=== PATIENT | male | born 1965 | race Two or more races ===

== ENCOUNTER 2019-04-29 07:18 | Day surgery (SDC) | payer OTHER ==
[2019-04-29] VITALS (11 sets, daily range): BP systolic 101–135; BP diastolic 63–87
[~2019-04-29] VITALS: Ht 167.6 cm; Wt 67.1 kg
[~2019-04-29 07:18] MED LIST: NKM
--- NOTE | 2019-04-29 08:48 | Pre-Procedure Note/Attestation ---
Pre-Procedure Note/Attestation Complete Prior to Procedure Planned Procedure: not applicable Procedure Narrative: Procedure for Prolapse and Hemorrhoids (PPH) Indications for Procedure Pre-Operative Diagnosis: Hemorrhoids Attestation I attest that I discussed the nature of the procedure; its benefits; risks and complications; and alternatives (and the risks and benefits of such alternatives ), prior to the procedure, with the patient (or the patient's legal physician representative). I attest that, if there was a reasonable possibility of needing a blood transfusion, the patient (or the patient's legal physician representative) was given the [facility] standardized written summary, pursuant to the Elpidio Darcy Blood Safety Act ([place] Health and Safety Code # 1645, as amended). I attest that I re-evaluated the patient just prior to the surgery and that there has been no change in the patient's H&P, except as documented below: Sabina Carlson MD Apr 29, 2019 08:48
[2019-04-29] MEDS ORDERED: Ropivacaine 5mg/ml Vial 30ml INJ ONE (08:55)
[2019-04-29] MEDS ORDERED: EPINEPHrine 1mg/1ml Amp ONE (08:55)
[2019-04-29] MEDS ORDERED: cefOXitin 2gm Inj ONE (08:55)
[2019-04-29] MEDS ORDERED: Dexamethasone 4mg/ml vial ONE (08:55)
[2019-04-29] MEDS ORDERED: Lidocaine 1% Plain 30 ml INJ ONE (08:56)
[2019-04-29] MEDS ORDERED: Sodium Chloride 10ml vial INJ ONE (08:57)
[2019-04-29] MEDS ORDERED: Alfentanil 2ml Inj ONE (08:57)
[2019-04-29] MEDS ORDERED: LR 1000ml 1,000 ML IVLG SCH (08:58)
[2019-04-29] MEDS ORDERED: fentaNYL 100 mcg/2 mL IV PRN (09:00)
[2019-04-29] MEDS ORDERED: oxyCODONE HCL/Acetaminophen 5/325mg ORAL PRN (09:00)
[2019-04-29] MEDS ORDERED: Midazolam 2mg/2ml Inj IVP PRN (09:00)
[2019-04-29] MEDS ORDERED: LR 1000ml ONE (09:00)
[2019-04-29] MEDS ORDERED: HYDROcodone/Acetamin 7.5/325 tab ORAL PRN (09:00)
[2019-04-29] MEDS ORDERED: Propofol 200mg/20ml IV ONE (09:00)
[2019-04-29] MEDS ORDERED: DiphenhydrAMINE 50mg/ml Inj IVP PRN (09:00)
[2019-04-29] MEDS ORDERED: HYDROcodone/Acetamin 5/325 tab ORAL PRN (09:00)
[2019-04-29] MEDS ORDERED: Meperidine 50mg/ml Inj(FOR RIGORS ONLY) IVP PRN (09:00)
[2019-04-29] MEDS ORDERED: Acetic Acid 3% Solution 15ml TOPIC SCH (09:00)
[2019-04-29] MEDS ORDERED: Metoclopramide 10mg/2ml Inj IVP PRN (09:00)
[2019-04-29] MEDS ORDERED: Labetalol 5mg/ml 20ml vial IV PRN (09:00)
[2019-04-29] MEDS ORDERED: NS Irrig 1000ml ONE (09:00)
[2019-04-29] MEDS ORDERED: Sterile Water Irrig 1000ml IRRIG ONE (09:00)
[2019-04-29] MEDS ORDERED: Ketorolac 30mg Inj IV PRN ×2 (09:00)
[2019-04-29] MEDS ORDERED: Hydromorphone 0.5mg/0.5ml inj IVP PRN (09:00)
[2019-04-29] MEDS ORDERED: Atropine Sulfate 0.4mg/ml inj IVP PRN (09:00)
[2019-04-29] MEDS ORDERED: Acetaminophen (Non formulary) 100 ML IV ONE (09:00)
[2019-04-29] MEDS ORDERED: LORazepam Inj 2mg/ml 1ml IV PRN (09:00)
[2019-04-29] MEDS ORDERED: Lidocaine 1% MPF 10mg/ml 5ml ONE (09:06)
--- NOTE | 2019-04-29 09:08 | Anethesia Preoperative Eval ---
Anesthesia Pre-op PMH/ROS General Date of Evaluation: Apr 29, 2019 Time of Evaluation: 09:06 Anesthesiologist: Vito ASA Score: ASA 2 Mallampati Score Class I : Soft palate, uvula, fauces, pillars visible Class II: Soft palate, uvula, fauces visible Class III: Soft palate, base of uvula visible Class IV: Only hard plate visible Mallampati Classification: Class I Surgeon: Robyn Diagnosis: Hemorrhoids Surgical Procedure: Hemorroidectomy Anesthesia History: none Family History: no anesthesia problems Allergies: Coded Allergies: No Known Allergies (Unverified , 04/29/19) Medications: see eMAR Patient NPO?: Yes Past Medical History Gastrointestinal/Genitourinary: Reports: GERD PSxH Narrative: Appendectomy Anesthesia Pre-op Phys. Exam Physician Exam Last Vital Signs Date Time Temp Pulse Resp B/P (MAP) Pulse Ox O2 Delivery O2 Flow Rate FiO2 04/29/19 07:48 Room Air 04/29/19 07:47 97.0 58 18 127/78 98 Constitutional: NAD Neurologic: CN 2-12 intact Cardiovascular: RRR Respiratory: CTA Gastrointestinal: S/NT/ND Airway Exam Mallampati Score: Class I MO: full ROM: full Teeth: intact Anesthesia Pre-op A/P Risk Assessment & Plan Assessment: ASA 2 Plan: GA, SED Status Change Before Surgery: No Pre-Antibiotics Drug: Cefoxitan 1 Gram IV Given Within 1 Hr of Incision: Yes Time Given: 09:12 Akhil Padron MD Apr 29, 2019 09:07
--- NOTE | 2019-04-29 09:34 | Immediate Post-Op Evaluation ---
Immediate Post-Op Evalulation Immediate Post-Op Evalulation Procedure: Hemorroidectomy Date of Evaluation: Apr 29, 2019 Time of Evaluation: 10:17 IV Fluids: 300 LR Blood Products: 0 Estimated Blood Loss: 30 Urinary Output: 0 Blood Pressure Systolic: 129 Blood Pressure Diastolic: 84 Pulse Rate: 84 Respiratory Rate: 16 O2 Sat by Pulse Oximetry: 99 Temperature (Fahrenheit): 97.6 Pain Score (1-10): 1 Nausea: No Vomiting: No Complications 0 Patient Status: awake, reacts, patent, none Hydration Status: adequate Dru Gram Cefoxitan IV Given Within 1 Hr of Incision: Yes Time Given: 09:12 Akhil Padron MD Apr 29, 2019 09:34
--- NOTE | 2019-04-29 09:35 | 48 Hour Post Anesthesia Eval ---
Post Anesthesia Evaluation Procedure: Hemorroidectomy Date of Evaluation: Apr 29, 2019 Time of Evaluation: 12:23 Blood Pressure Systolic: 127 0: 81 Pulse Rate: 78 Respiratory Rate: 18 Temperature (Fahrenheit): 97.8 O2 Sat by Pulse Oximetry: 100 Airway: patent Nausea: No Vomiting: No Pain Intensity: 1 Hydration Status: adequate Cardiopulmonary Status: Stable Mental Status/LOC: patient returned to baseline Follow-up Care/Observations: 0 Post-Anesthesia Complications: 0 Follow-up care needed: ready to discharge Akhil Padron MD Apr 29, 2019 09:35
[2019-04-29] MEDS ORDERED: Flumazenil 0.1mg/ml 5ml Inj IV ONE (09:44)
--- NOTE | 2019-04-29 10:02 | Brief Operative Note ---
Immediate Post Operative Note Operative Note Chief Complaint: Bleeding hemorrhoids Pre-op Diagnosis: Hemorrhoids Procedure: Procedure for Prolapse and Hemorrhoids (PPH) Post-op Diagnosis: same Post-op Diagnosis: same as pre-op Findings: consistent w/pre-op dx studies Surgeon: Sabina Carlson MD Anesthesiologist: Akhil Padron MD Anesthesia: general, moderate sedation Specimen: yes Complications: none Condition: stable Fluids: see anesthesia record Estimated Blood Loss: minimal Drains: none Implant(s) used?: No Sabina Carlson MD Apr 29, 2019 10:02
--- NOTE | 2019-04-29 17:15 | Operative Note - Dictated ---
DATE OF OPERATION: 04/29/2019 PREOPERATIVE DIAGNOSIS: Bleeding large internal hemorrhoids. POSTOPERATIVE DIAGNOSIS: Bleeding large internal hemorrhoids. PROCEDURE: Procedure for prolapse and hemorrhoids (PPH). SURGEON: Sabina Carlson M.D. ANESTHESIOLOGIST: Akhil Padron M.D. ANESTHESIA: Propofol sedation with local anesthetic. INDICATION FOR PROCEDURE: The patient is a 53-year-old male who was sent to my office by his physician, Dr. Sourav Baxter, for colorectal surgical evaluation of large bleeding internal hemorrhoids. The patient was found on physical exam to have prolapsing internal hemorrhoids, which were friable and oozing. In light of the patient's continued bleeding, it was determined at this time to proceed with hemorrhoidectomy. DESCRIPTION OF PROCEDURE: Upon consent of the patient, the patient was brought to the operating room and placed in the prone ankur-knife position on the operating table. Once adequate sedation was started with propofol drip, the patient's buttocks were prepped and draped in usual standard surgical fashion. A 40 mL of 0.5% ropivacaine with epinephrine mixed with 8 mg of dexamethasone was used as a perianal and pudendal block. A Hill-Pagan retractor was placed into the anal canal. There were noted to be large prolapsing circumferential internal hemorrhoid. The dilator Covidien PPH stapler was inserted and removed. The dilator with a clear obturator was then inserted and held firmly to the buttocks and placed. The dilator was removed and the pursestring anoscope was inserted and a pressure was created approximately 1 cm proximal to the dentate line using a 2-0 Monocryl suture. Upon completion of the pursestring, the anoscope was removed and the pursestring was tied around the anvil of the 33 mm Covidien PPH stapler. The stapler was closed and the perianal skin was checked to make sure there is no involvement of the perianal skin. The stapler was then fired, opened, and withdrawn, there was noted to be a complete hemorrhoidal donut. This was passed off the field as specimen. The anoscope was reinserted and any bleeding points along the staple line were electrofulgurated with the Bovie electrocautery. The anal canal was then irrigated and hemostasis confirmed. Ice pack was used for postoperative swelling. Sponge, needle, instrument, counts were correct at the end of the case. The patient was awakened from anesthesia and brought to postanesthesia recovery in stable condition. ESTIMATED BLOOD LOSS: Less than 5 mL. DRAINS: None. SPECIMEN: Hemorrhoidal donut. COMPLICATIONS: None. Sabina Carlson M.D. DR: ISIDRO JOB#: [id number] CC: Enrique Forman M.D.
== END 2019-04-29 12:30 | disposition home or self-care (01) ==
LOC: SUR 07:18
DX: K64.8 Other hemorrhoids (principal); K21.9 Gastro-esophageal reflux disease without esophagitis; Z90.89 Acquired absence of other organs
CPT/HCPCS: 46947; J0171; J0694; J1100; J1885; J2001; J2250; J2704; J2795; J3490; 94003; 94150